=== PATIENT | female | born 1960 | race African-American/Black ===

== ENCOUNTER 2016-06-06 11:14 | Emergency (ER) | payer OTHER ==
[~2016-06-06] VITALS: Ht 165.1 cm; Wt 80.7 kg
[2016-06-06 12:15] VITALS: BP 167/91
[2016-06-06] MEDS ORDERED: CYCLOBENZAPRINE10 MG ORAL (12:23)
[2016-06-06] MEDS ORDERED: IBUPROFEN600 MG ORAL (12:23)
[2016-06-06 12:35] VITALS: BP 167/91
--- NOTE | 2016-06-06 17:20 | Emergency Room Report ---
History of Present Illness General Chief Complaint: Upper Extremity Injury Source: Patient Present Illness [facility] The patient is a 55-year-old female presenting with right shoulder pain which began today at work. The patient states that she was moving a patient and felt a sharp pain of the right shoulder. The pain is now described as a 9/10 dull ache and does not radiate from the shoulder. The patient states that she is unable to move the arm because of pain. The patient denies prior injury to the shoulder. The patient denies any numbness or tingling of the arm. The patient denies other symptoms including nausea, vomiting, fever, chills, rash, chest pain, shortness of breath Allergies: Coded Allergies: No Known Allergies (Unverified , 06/06/16) Patient History Past Medical History: see triage record Pertinent Family History: none Last Menstrual Period: na Now: No Reviewed Nursing Documentation: PMH: Agreed, PSxH: Agreed Nursing Documentation-PMH Past Medical History: No History, Except For Hx Hypertension: Yes Review of Systems All Other Systems: negative except mentioned in HPI Physical Exam Vital Signs Date Time Temp Pulse Resp B/P Pulse Ox O2 Delivery O2 Flow Rate FiO2 06/06/16 11:36 98.1 78 18 186/114 98 Room Air Sp02 EP Interpretation: reviewed, normal General Appearance: no apparent distress, alert, GCS 15, non-toxic Head: normocephalic, atraumatic Eyes: bilateral eye PERRL, bilateral eye normal inspection ENT: hearing grossly normal, normal pharynx, no angioedema, normal voice Respiratory: chest non-tender, lungs clear, normal breath sounds, speaking full sentences Musculoskeletal: normal inspection, back normal, decreased range of motion - R shoulder, tender - R lateral deltoid Neurologic: alert, oriented x3, responsive, motor strength/tone normal, sensory intact, speech normal Psychiatric: judgement/insight normal, memory normal, mood/affect normal, no suicidal/homicidal ideation Reflexes: 3+ bicep (R), 3+ bicep (L), 3+ tricep (R), 3+ tricep (L), 3+ knee (R) , 3+ knee (L) Skin: normal color, no rash, warm/dry, well hydrated Lymphatic: no adenopathy Procedures Splinting Splinting : Consent: Verbal Location: R shoulder Pre-Made Type: sling Pre-Proc Neuro Vasc Exam: normal Post-Proc Neuro Vasc Exam: normal Patient Tolerated: Well Complications: None Medical Decision Making PA Attestation Dr. Marshall is my supervising physician. Patient management was discussed with my supervising physician Diagnostic Impression: Primary Impression: Strain of shoulder, right ER Course The patient is a 55-year-old female presenting with right shoulder pain which began today at work. Ddx considered include but not limited to sprain/strain, dislocation, fracture, contusion, RTC injury Physical exam: The patient is hypertensive. Otherwise unremarkable. No apparent distress Right shoulder: No obvious deformity. No ecchymosis or discoloration. Sensation intact to light touch. There is tenderness to palpation over the lateral deltoid. Patient is unable to flex or abduct the shoulder past 45 due to pain. Right shoulder is placed in a sling And the patient is given Motrin. The patient will be discharged home with a prescription for Motrin and Flexeril. The patient will be discharged home and is advised she may need an MRI for further evaluation. ER precautions are given and the patient will follow up with workers compensation Last Vital Signs Date Time Temp Pulse Resp B/P Pulse Ox O2 Delivery O2 Flow Rate FiO2 06/06/16 12:35 98.1 73 16 167/91 95 Room Air Status: improved Disposition: HOME, SELF-CARE Condition: Improved Scripts Cyclobenzaprine Hcl* (FLEXERIL*) 10 Mg Tablet 10 MG ORAL THREE TIMES A DAY, #15 TAB Prov: FILEMON ANGUIANO P.A. 06/06/16 Ibuprofen* (MOTRIN*) 600 Mg Tablet 600 MG ORAL Q8H Y for For Pain, #30 TAB 0 Refills Prov: FILEMON ANGUIANO P.A. 06/06/16 Referrals: NON PHYSICIAN (PCP) Patient Instructions: Shoulder Pain Additional Instructions: I discussed my findings with the patient. All questions and concerns have been answered. Treatment and medication compliance have been addressed. I advised the patient that they need to follow up with PMD in 3-5 days. Return to ED if pain remains or worsens, numbness or tingling occurs, new rash is noticed, fever is noticed, or if needed for any reason. Patient verbalized understanding of discharge instructions. The patient is advised she may need an MRI for further evaluation FILEMON ANGUIANO Jun 06, 2016 17:20
== END 2016-06-06 12:35 | disposition home or self-care (01) ==
LOC: EMR 12:20
DX: S46.911A Strain of unspecified muscle, fascia and tendon at shoulder and upper arm level, right arm, initial encounter (principal); X50.9XXA Other and unspecified overexertion or strenuous movements or postures, initial encounter; Y93.F2 Activity, caregiving, lifting; Y92.89 Other specified places as the place of occurrence of the external cause; Y99.0 Civilian activity done for income or pay; I10 Essential (primary) hypertension
CPT/HCPCS: 99284